=== PATIENT | female | born 1975 | race Caucasian/White ===

== ENCOUNTER 2018-11-01 16:38 | Observation (INO) | payer OTHER ==
[~2018-11-01] VITALS: Ht 162.6 cm; Wt 116.1 kg
[~2018-11-01 16:38] MED LIST: ANTIVERT25 MG PO
[2018-11-01] MEDS ORDERED: LISINOPRIL-HCT1 EAC1 PO (17:05)
[2018-11-01] MEDS ORDERED: BUPROPION XL150 MG PO (17:05)
[2018-11-01] MEDS ORDERED: SERTRALINE HCL100 MG PO (17:06)
[2018-11-01] MEDS ORDERED: METFORMIN HCL500 MG PO (17:06)
[2018-11-01] MEDS ORDERED: ZOFRAN4 MG PO (21:56)
[2018-11-01] MEDS ORDERED: NORCO 5-325 TA1 EACH PO (21:56)
--- NOTE | 2018-11-03 07:51 | CONS ---
[facility] [address], [place] [address] Signed DATE OF CONSULTATION: 11/02/2018 CHIEF COMPLAINT: Right upper quadrant abdominal pain. HISTORY OF PRESENT ILLNESS: Db is a 43-year-old female with a 1-day history of epigastric abdominal pain radiating through to her back. It has caused some vomiting. She came to emergency room for evaluation. She was tender in the right upper quadrant with an elevated white blood cell count. Liver function tests and lipase were fine. Beta-hCG is negative. Urinalysis is negative. Abdominal x-rays were not particularly concerning, so a CT scan of the abdomen and pelvis was performed. She has a large 3.5 cm stone in the neck of the gallbladder with some mild distention of the gallbladder and possibly an umbilical hernia. Consequently, an ultrasound was performed and sure enough she has a 3.5 cm gallstone with an 8 mm thickened gallbladder wall and a positive Schofield sign. The common bile duct is unremarkable 3 mm. Consequently, I was asked to see her as a general surgeon on-call. She also says she has had some intermittent rectal bleeding in last 2 months. In the meantime, she has been given Levaquin and Flagyl, admitted with IV fluids and pain control. Overall, she is doing well. PAST MEDICAL HISTORY: Hypertension, polycystic ovarian syndrome, depression, and prediabetic. PAST SURGICAL HISTORY: Tonsils. SOCIAL HISTORY: She does not smoke or drink. She is to Roberto, at [phone]. They have one daughter. She works for our local [employer]. Israel Mandujano is her primary care provider. FAMILY HISTORY: Apparently, her dad has multiple medical issues. Mom is healthy. REVIEW OF SYSTEMS: She had 10 systems reviewed and nothing new was uncovered. ALLERGIES: Penicillin. MEDICATIONS: 1. Bupropion XL. 2. Lisinopril. Electronically Signed By: LOUIS CRUZ MD 11/03/18 0751 PATIENT NAME: DB MORIN CONSULTATION DATE OF : 79 REPORT #: [id number] PHYSICIAN: LOUIS CRUZ MD PCP: ISRAEL MANDUJANO REPORT IS CONFIDENTIAL AND NOT TO BE RELEASED WITHOUT AUTHORIZATION [facility] [address], [place] [address] Signed 3. Hydrochlorothiazide. 4. Metformin. 5. Sertraline. PHYSICAL EXAMINATION: VITAL SIGNS: Her blood pressure is 146/87, heart rate 88, respiratory rate 17, temperature is 98.6. She is 96% on room air. She is 5 feet 4 inches at 116 kg. GENERAL: Db is a 43-year-old female lying supine in her hospital bed with her Roberto in the room along with our nurse, Dwight. She does not appear systemically ill or toxic. She is not jaundiced. She is a good historian. LUNGS: Clear to auscultation bilaterally. HEART: Regular rate and rhythm. ABDOMEN: Obese, but soft. She had some Dilaudid, but she is still a little tender in the right upper quadrant. I cannot specifically feel an umbilical hernia due to her body habitus. LABORATORY DATA: Her white blood cell count is 15.8, hemoglobin 11.8, neutrophils 72, platelets 347. BUN 15, creatinine 0.7, total bilirubin 0.3, AST 10, ALT 14, alkaline phosphatase 57. Her albumin is 3.8. Lipase 10. Beta-hCG negative. Urinalysis negative. RADIOGRAPHIC STUDIES: Abdominal x-rays were unremarkable. CT scan of abdomen and pelvis showed the stone in the gallbladder with mild distention of the gallbladder, possibly an umbilical hernia. Also, the ultrasound showed 3.5 cm gallstone with 8 mm thickened gallbladder wall and a positive Schofield sign, but a normal common bile duct at 3 mm. ASSESSMENT AND PLAN: Db is a 43-year-old female, who presents with acute cholecystitis and cholelithiasis. She has been admitted, given IV fluids and antibiotics. We have reviewed her findings along with the location and function of the gallbladder. We have reviewed laparoscopic versus open cholecystectomy. She understands expected intraop and postop course. She understands there is risk including, but not limited to bleeding, infection, scarring, change in contour of the skin, damage to bowel, damage to main bile duct, and incisional hernias. She and her have expressed understanding and wished to proceed. Louis Cruz MD ALB/MODL /[id number] Electronically Signed By: LOUIS CRUZ MD 11/03/18 0751 PATIENT NAME: DB MORIN CONSULTATION DATE OF : 79 REPORT #: [id number] PHYSICIAN: LOUIS CRUZ MD PCP: ISRAEL MANDUJANO REPORT IS CONFIDENTIAL AND NOT TO BE RELEASED WITHOUT AUTHORIZATION [address] [address] Signed cc: MD Israel Denson FNP Copies: LOUIS CRUZ MD, WADE R FNP ~ Electronically Signed By: LOUIS CRUZ MD 11/03/18 0751 PATIENT NAME: DB MORIN CONSULTATION DATE OF : 79 REPORT #: [id number] PHYSICIAN: LOUIS CRUZ MD PCP: ISRAEL MANDUJANO REPORT IS CONFIDENTIAL AND NOT TO BE RELEASED WITHOUT AUTHORIZATION
--- NOTE | 2018-11-03 07:51 | OR ---
[facility] [address] [place], [place] [address] Signed DATE OF OPERATION: 11/02/2018 SURGEON: Louis Cruz MD PREOPERATIVE DIAGNOSIS: Acute cholecystitis with cholelithiasis. POSTOPERATIVE DIAGNOSIS: Acute cholecystitis with cholelithiasis. PROCEDURE: Laparoscopic cholecystectomy without intraoperative cholangiogram (prolonged and difficult at 1 hour). ESTIMATED BLOOD LOSS: None. FINDINGS: Db indeed had a very thickened gallbladder wall around 8 mm. She had significant pericholecystic edema. She did have a large 2.5 cm stone impacted in the neck of her gallbladder. The triangle of Calot was significantly inflamed. We attempted to place our intraoperative cholangiocatheter through the valves of Heister without success. Therefore, the intraoperative cholangiogram was abandoned. We did require the large fan retractor and an extra nurse to scrub in to hold the omentum and the mesocolon down and out away, so we could access the neck of the gallbladder and the triangle of Calot. This case took an hour which is at least twice as long as usual. Consequently, for these reasons, the case was prolonged and difficult. INDICATIONS: Db is a 43-year-old female with polycystic ovarian syndrome. She had been having epigastric pain radiating through to her back. She had vomiting. She came to emergency room for evaluation. She was tender in the right upper quadrant. Her white count was elevated, but her liver function tests were fine. Her beta-HCG was negative. She received a CT scan of the abdomen and pelvis and showed a large stone with a mildly distended gallbladder. An ultrasound was performed and followup and she has a 3.5 cm stone with an 8 mm thickened gallbladder wall. She had a positive Schofield sign. The common bile duct was unremarkable at 3 mm. Consequently, I was asked to admit her last night as a general surgeon on-call. She has received IV fluids, pain control, and antibiotics. I met with Db and her in her hospital room. I explained the above findings. We reviewed the location of function of the gallbladder. We discussed Electronically Signed By: LOUIS CRUZ MD 11/03/18 0751 PATIENT NAME: DB MORIN OPERATIVE REPORT DATE OF : 79 REPORT #: [id number] PHYSICIAN: LOUIS CRUZ MD PCP: ISRAEL MANDUJANO REPORT IS CONFIDENTIAL AND NOT TO BE RELEASED WITHOUT AUTHORIZATION [facility] [address] [place] [id number] Signed laparoscopic versus open cholecystectomy. She understands expected intraop and postop course. There is risk of surgery including not limited to bleeding, infection, scarring, change in contour of the skin, damage to bowel, damage to main bile duct, and incisional hernias. She had expressed understanding and wished to proceed. PROCEDURE NOTE: Db was taken into the operating room and placed in the supine position under general endotracheal tube anesthesia. She was already on preoperative antibiotics. SCDs were utilized. She was given 5000 units of heparin subcutaneously. She was then prepped and draped in usual sterile fashion. All trocars were placed in usual positions under direct visualization of camera without difficulty. The findings are as above. It took us a few minutes to elevate the gallbladder in the right upper quadrant and worked the omentum down and off the gallbladder both bluntly and with the cautery. We had to introduced the fan retractor through the midline and had an additional nurse scrub in, so we could hold the mesocolon in the omentum down and out of the way. It took additional time very carefully dissect out the triangle of Calot. She also had a stone impacted in the neck of the gallbladder. We opened up the cystic duct and unfortunate we could not pass our cholangiocatheter through the valves of Heister. We did not feel it was safe to carry the dissection further down the cystic duct, so we went ahead and placed 3 sequential clips completely across the cystic duct and divided that duct sharply. The gallbladder was then slowly and carefully removed from the gallbladder fossa with the help of cautery and we noticed that the gallbladder wall was quite thickened and there was significant edema as well. In this way, it took extra time. Eventually, the gallbladder was free and we placed it into an EndoCatch bag. The right upper quadrant was irrigated and suctioned out until clear. We then used our laparoscopic suturing device to pass 0 Vicryl suture on either side of the fascia of the subxiphoid in the mid epigastric trocar sites. These were tied down the mesh to close the fascia primarily of these 2 trocar sites. After this, all the gas was allowed to escape and the trocars were removed. We had to extend the supraumbilical fascial defect another cm in order to remove the gallbladder in the large stone. We then closed the fascial defect above the umbilicus with interrupted [id number] and simple 0 Vicryl sutures. Local anesthetic was injected into all trocar sites. Each trocar site was irrigated and suctioned out until clear. The skin and dermis of each trocar site were closed with interrupted 3-0 subcuticular Monocryl sutures. Dry gauze and tape were applied to all incisions. Pictures were taken throughout for photodocumentation. The gallbladder had been opened on the back table by our circulating nurse and it was quite thickened and had a large 3.5 cm stone. After this, Db was awakened from anesthesia, extubated in the OR, and taken to recovery room in stable condition. Electronically Signed By: LOUIS CRUZ MD 11/03/18 0751 PATIENT NAME: DB MORIN OPERATIVE REPORT DATE OF : 79 REPORT #: [id number] PHYSICIAN: LOUIS CRUZ MD PCP: ISRAEL MANDUJANO REPORT IS CONFIDENTIAL AND NOT TO BE RELEASED WITHOUT AUTHORIZATION [address] [address] Signed MD DANK Denson/EARL /[id number] cc: MD Israel Denson FNP Copies: LOUIS CRUZ MD, WADE R FNP ~ Electronically Signed By: LOUIS CRUZ MD 11/03/18 0751 PATIENT NAME: DB MORINN OPERATIVE REPORT DATE OF : 79 REPORT #: [id number] PHYSICIAN: LOUIS CRUZ MD PCP: ISRAEL MANDUJANO REPORT IS CONFIDENTIAL AND NOT TO BE RELEASED WITHOUT AUTHORIZATION
[2018-11-03] MEDS ORDERED: NORCO 5-325 TA1 EACH PO (09:45)
== END 2018-11-03 11:40 | disposition home or self-care (01) ==
LOC: ED 16:38 → MS 16:40
PROVIDERS: ADMIT Colon & Rectal Surgery
PROC: 0FT44ZZ Resection of Gallbladder, Percutaneous Endoscopic Approach (ICD-10-PCS; principal; 2018-11-01)
DX: K80.12 Calculus of gallbladder with acute and chronic cholecystitis without obstruction (principal); I10 Essential (primary) hypertension; F32.9 Major depressive disorder, single episode, unspecified; R73.03 Prediabetes; E28.2 Polycystic ovarian syndrome; E66.9 Obesity, unspecified; Z88.0 Allergy status to penicillin; Z79.899 Other long term (current) drug therapy; Z87.891 Personal history of nicotine dependence; Z79.84 Long term (current) use of oral hypoglycemic drugs
CPT/HCPCS: 00790; 74018; 74177; 76705; 80053; 81001; 83690; 84703; 85025; 94762; 96361; 96365; 96366; 96374; 96375; 96376; 99285-25; C9113; G0378; J0330; J1100; J1170; J1644; J1885; J1956; J2250; J2270; J2405; J2704; J2765; J3010; J7030; J7120; Q9967

== ENCOUNTER 2019-08-18 08:35 | Emergency (ER) | payer OTHER ==
[~2019-08-18] VITALS: Ht 162.6 cm; Wt 114.3 kg
[~2019-08-18 08:35] MED LIST changes: +BUPROPION XL150 MG PO; +LISINOPRIL-HCT1 EAC1 PO; +METFORMIN HCL500 MG PO; +NORCO 5-325 TA1 EACH PO; +SERTRALINE HCL100 MG PO; +ZOFRAN4 MG PO
[2019-08-18] MEDS ORDERED: FLOMAX0.4 MG PO (10:51)
[2019-08-18] MEDS ORDERED: NORCO 5-325 TA1 EACH PO (10:51)
[2019-08-18] MEDS ORDERED: ZOFRAN4 MG PO (10:51)
== END 2019-08-18 11:11 | disposition home or self-care (01) ==
LOC: ED 08:35
DX: N13.2 Hydronephrosis with renal and ureteral calculous obstruction (principal); I10 Essential (primary) hypertension; F32.9 Major depressive disorder, single episode, unspecified; Z87.891 Personal history of nicotine dependence; Z88.0 Allergy status to penicillin; Z79.899 Other long term (current) drug therapy; Z79.84 Long term (current) use of oral hypoglycemic drugs
CPT/HCPCS: 74176; 80053; 81001; 83690; 84703; 85025; 96361; 96374; 96375; 99284-25; J1170; J1885; J2405; J7030

== ENCOUNTER 2023-02-21 07:30 | Day surgery (SDC) | payer BC ==
[2023-02-14 16:31] VITALS: BP 125/88
[~2023-02-21] VITALS: Ht 162.6 cm; Wt 113.6 kg
[~2023-02-21 07:30] MED LIST changes: +FLOMAX0.4 MG PO; +TRULICITY3 MG/0.5 M
[2023-02-21 07:44] VITALS: BP 155/99
--- NOTE | 2023-02-21 08:09 | NUR ---
CONNECTED WITH PT GIVING ENCOURAGEMENT AND SUPPORT. FAMILY IS WITH PT
--- NOTE | 2023-02-21 10:50 | NUR ---
02/21/23 1050 Latonya Rosenthal SN [id number] PATIENT ARRIVES TO PACU RESPONSIVE TO VERBAL STIMULI. RESTING WITH EYES CLOSED. RESP EVEN AND UNLABORED. INITAILLY COUGHING, ABDOMEN SPLINTED WITH PILLOW. MASK AT 6 LITERS.
[2023-02-21 11:57] VITALS: BP 133/72
--- NOTE | 2023-02-21 12:00 | NUR ---
1150: PT RETURNS TO UNIT VIA STRETCHER FROM PACU. AWAKE AND ALERT ON ARRIVAL, ANSWERS QUESTIONS APPROPRIATELY. VSS, RESP EVEN AND UNLABORED. DRESSING C/D/I. DENIES NAUSEA AND REPORTS ELEONORA PAIN LEVEL, 4/10. ICE WATER AND CRACKERS PROVIDED. SCDS IN PLACE AND ICE TO INCISION. POC DISCUSSED AND PT AGREEABLE. NO NEEDS AT THIS TIME. CALL LIGHT WITHIN REACH
--- NOTE | 2023-02-21 12:32 | NUR ---
LE 1220: PT TURNS PRODUCTION LEADER LIGHT AND ASKS FOR A PAIN PILL AND TO GET UP AND USE THE BATHROOM. SHE IS ASSISTED UP OOB WITH STAND BY ASSIST. SHE AMBULATES HERSELF INDEPENDENTLY TO THE BATHROOM, WHERE SHE VOIDS 600MLS OF YELLOW URINE. SHE AMBULATES HERSELF BACK TO HER ROOM AND INTO BED INDEPENDENTLY.
[2023-02-21 13:02] VITALS: BP 121/71
--- NOTE | 2023-02-21 13:02 | OR ---
[facility] [address] [place], [place] [address] Signed DATE OF OPERATION: 02/21/2023 SURGEON: Louis Cruz MD PREOPERATIVE DIAGNOSES: 1. Incarcerated supraumbilical trocar site incisional hernia (3.2 cm). 2. Possible umbilical hernia. POSTOPERATIVE DIAGNOSES: 1. Reducible supraumbilical trocar site incisional hernia (3.2 cm). 2. Umbilical hernia (8 mm). PROCEDURE: Primary incisional herniorrhaphy with intra-abdominal round Ventralex mesh (8 cm). ESTIMATED BLOOD LOSS: None. INDICATIONS: Db is a 47-year-old obese diabetic female with a body mass index of 43. She came in 2018 for a laparoscopic cholecystectomy. It was somewhat difficult. In 2019, she had a CT scan of the abdomen and pelvis for her kidney stones. She had a 3.2 cm supraumbilical trocar site incisional hernia at that time. She has been feeling a lump and having pain at that site. It has been difficult for her to wear her pants and to put a belt across this area. It has been bothering her throughout the day while at work. She had been to her primary care provider. She came to my office with respect to the above. Based on her obesity, it was difficult to feel any hernia directly at the umbilical site. However, we could feel a palpable lump just above the umbilicus. At that time, we did not feel it was particularly reducible. In the office, I gave her a brochure on hernias. We looked at the brochure page by page. I circled the sections relevant to her. We had reviewed the nature of the hernia. We reviewed primary suture repair versus mesh repair. There is risk including, but not limited to bleeding, infection, scarring, change in contour of the skin, damage to bowel, infection of mesh requiring removal, recurrent hernias and chronic pain. She understands the expected intraop and postop course. She had expressed understanding and wished to proceed. DESCRIPTION OF PROCEDURE: I met with Db and her mother, Sandi in the preop area. We all agreed on the supraumbilical trocar site incisional hernia site and marked that appropriately. After this, she was taken to the operating room and placed in the supine position under Electronically Signed By: LOUIS CRUZ MD 02/21/23 1302 PATIENT NAME: DB MORIN OPERATIVE REPORT DATE OF : 79 REPORT #: [id number] PHYSICIAN: LOUIS CRUZ MD PCP: DENISSE HOLT MD REPORT IS CONFIDENTIAL AND NOT TO BE RELEASED WITHOUT AUTHORIZATION [facility] [address] [place], [place] [address] Signed general endotracheal tube anesthesia. She had been given preoperative antibiotics along with subcutaneous heparin. SCDs were utilized. She had been prepped and draped in the usual sterile fashion. We utilized her previous supraumbilical transverse incision. We opened that up sharply with a knife. We carried this down and around the hernia sac. The hernia sac was all up against the posterior aspect of the skin. We opened the hernia sac and we followed it down about 4 inches through her subcutaneous tissue to the abdominal wall. The entire hernia sac was excised. We noticed that she had just a tiny 8 mm umbilical hernia fascial defect with a small bridge of fascia between the two hernias. That bridge may be 3 mm wide at the most. We simply divided that bridge. We had the umbilicus from this area as well. We then placed our 8 cm round Ventralex mesh into her abdomen and brought up against the posterior abdominal wall. She has a thick sheet of omentum behind the mesh. We then brought the fascial defect together transversely with interrupted [id number] and simple #1 Prolene sutures. Several passes of the suture went through the tab on the mesh to help hold it in place. The tab was then cut flushed with the abdominal wall. This repaired both hernias simultaneously. We injected local anesthetic into the abdominal wall and subcutaneous tissues. The umbilical skin was brought down to the midline fascia with an interrupted 2-0 PDS suture. The dermis was reapproximated with interrupted 3-0 subcuticular Monocryl sutures. The skin edges were reapproximated a running 5-0 fast absorbing plain gut suture. Dry gauze and tape were then applied. Db was awakened from anesthesia, extubated in the OR, and taken to the recovery room in stable condition. Louis Cruz MD ALB/MODL /[id number] cc: MD Denisse Denson MD Copies: LOUIS CRUZ MD Electronically Signed By: LOUIS CRUZ MD 02/21/23 1302 PATIENT NAME: DB MORIN OPERATIVE REPORT DATE OF : 79 REPORT #: [id number] PHYSICIAN: LOUIS CRUZ MD PCP: DENISSE HOLT MD REPORT IS CONFIDENTIAL AND NOT TO BE RELEASED WITHOUT AUTHORIZATION [facility] [address] [place] [address] Signed DENISSE HOLT DMD ~ Electronically Signed By: LOUIS CRUZ MD 02/21/23 1302 PATIENT NAME: DB MORIN OPERATIVE REPORT DATE OF : 79 REPORT #: [id number] PHYSICIAN: LOUIS CRUZ MD PCP: DENISSE HOLT MD REPORT IS CONFIDENTIAL AND NOT TO BE RELEASED WITHOUT AUTHORIZATION
--- NOTE | 2023-02-21 13:04 | NUR ---
1255: PT AWAKE AND ALERT IN STRETCHER. VSS, RESP EVEN AND UNLABORED. PT DENIES NAUSEA AND REPORTS ELEONORA PAIN LEVEL, 02/12. ELEONORA PO INTAKE WELL. DRESSING REMAINS C/D/I. DANGLED AT THE BEDSIDE. ELEONORA WELL, DENIES DIZZINESS AND SOB. TO DRESS INDEPENDENTLY AND PREPARE FOR DC
--- NOTE | 2023-02-21 16:54 | NUR ---
1315: SL REMOVED WITH CATH TIP INTACT AND PRESSURE APPLIED TO SITE, WNL. DC INSTRUCTION PROVIDED AND DISCUSSED ORDERED. PT VOICES UNDERSTANDING AND DENIES QUESTIONS AND CONCERS AT THIS TIME. WHEELED OFF OF UNIT BY THIS RN. TRANSFERS INTO VEHICLE INDEPENDENTLY AND APPROPRIATELY. NO PHYSICAL S/S OF DISTRESS AT THIS TIME
== END 2023-02-21 13:15 | disposition home or self-care (01) ==
LOC: DS 07:30
PROVIDERS: ATTEND Colon & Rectal Surgery
DX: K43.2 Incisional hernia without obstruction or gangrene (principal); K42.9 Umbilical hernia without obstruction or gangrene; I10 Essential (primary) hypertension; E11.8 Type 2 diabetes mellitus with unspecified complications; E78.2 Mixed hyperlipidemia; Z88.0 Allergy status to penicillin; Z79.84 Long term (current) use of oral hypoglycemic drugs; Z79.899 Other long term (current) drug therapy
CPT/HCPCS: 00830; 93005; 93010; C1781; J0131; J0330; J0690; J1100; J1644; J1885; J2250; J2405; J2704; J2765; J3010; J7121